=== PATIENT | female | born 1975 | race Caucasian/White ===

== ENCOUNTER 2018-07-15 08:20 | Emergency (ER) | payer MEDICARE, OTHER ==
[~2018-07-15] VITALS: Ht 162.6 cm; Wt 96.6 kg
[2018-07-15] MEDS ORDERED: IBUPROFEN 600 MG TABLET. PO ONE (08:45)
--- NOTE | 2018-07-15 08:45 | PHYS DOC ---
Past History Past Medical History: Depression Past Surgical History: No Surgical History Smoking: Non-smoker Alcohol Use: Occasionally Drug Use: None Adult General Chief Complaint Chief Complaint: ELBOW PROBLEM HPI HPI Patient is a 42-year-old female presents complaining of bilateral elbow pain, right greater than left, after mechanical trip and fall down several bleacher steps. This happened approximately 30 minutes prior to arrival. There was no loss of consciousness. No numbness or tingling. Increased pain with movement. Patient is right-hand dominant. No previous history of elbow injury. Pain is moderate to severe in intensity. No radiation of the pain. Naproxen has been taken with minimal improvement. Last oral intake of food was 6 AM.[] Review of Systems Review of Systems Constitutional: Denies fever or chills [] Eyes: Denies change in visual acuity, redness, or eye pain [] HENT: Denies nasal congestion or sore throat [] Respiratory: Denies cough or shortness of breath [] Cardiovascular: No chest pain or palpitation[] GI: Denies abdominal pain, nausea, vomiting, bloody stools or diarrhea [] : Denies dysuria or hematuria [] Musculoskeletal: Denies back pain, see history of present illness[] Integument: Denies rash or skin lesions [] Neurologic: Denies headache, focal weakness or sensory changes [] Endocrine: Denies polyuria or polydipsia [] All other systems were reviewed and found to be within normal limits, except as documented in this note. Allergies Allergies Allergies Coded Allergies Type Severity Reaction Last Updated Verified Penicillins Allergy Unknown 07/15/18 Yes Sulfa (Sulfonamide Antibiotics) Allergy Unknown 07/15/18 Yes Physical Exam Physical Exam Constitutional: Well developed, well nourished, no acute distress, non-toxic appearance. [] HENT: Normocephalic, atraumatic, bilateral external ears normal, oropharynx moist, no oral exudates, nose normal. [] Eyes: PERRLA, EOMI, conjunctiva normal, no discharge. [] Neck: Normal range of motion, no tenderness, supple, no stridor. [] Cardiovascular:Heart rate regular rhythm, no murmur [] Lungs & Thorax: Bilateral breath sounds clear to auscultation [] Abdomen: Bowel sounds normal, soft, no tenderness, no masses, no pulsatile masses. [] Skin: Warm, dry, no erythema, no rash. [] Back: No tenderness, no CVA tenderness. [] Extremities: Bilateral elbows have diffuse tenderness to palpation, decreased active range of motion of the right elbow secondary to pain. Full active range of motion of the left elbow. A joint above and below the injury were evaluated and were normal. The other 2 extremities show: No tenderness, brain shins on bilateral knees, no suturable wound, no cyanosis, no clubbing, ROM intact, no edema. [] Neurologic: Alert and oriented X 3, normal motor function, normal sensory function, no focal deficits noted. [] Psychologic: Affect normal, judgement normal, mood normal. [] EKG EKG [] Radiology/Procedures Radiology/Procedures PROCEDURE: ELBOW RIGHT 2V Examination: 2 views of the right elbow and 3 views of the left elbow HISTORY: History of fall COMPARISON: None available Findings/ impression: Right elbow: There is posterior dislocation of the elbow with the ulna and radius dislocated posteriorly and laterally in relation to the humerus. However examination limited due to positioning. There is a bone density identified projecting posterior to the ulna and superior to the radius on the AP view could be fractured bone fragment. Left elbow: The alignment of the left elbow joint grossly appears unremarkable. There is lucency identified in the coronoid process of the ulna likely fracture of the coronoid process of the ulna. There is subtle cortical step-off identified in the radius head could be nondisplaced fracture or small osteophyte.[] Course & Med Decision Making Course & Med Decision Making Pertinent Labs and Imaging studies reviewed. (See chart for details) ED course: Patient arrived, was placed in bed, and tolerated exam well. After the return the imaging findings, these were discussed with the patient and her , both of whom voiced understanding. Consultation was made with Dr. Robledo, who recommended reduction of the right elbow dislocation. He did not think that surgery was indicated at this time, and that the left elbow had been dislocated and spontaneously reduced and recommended splinting of the left elbow. She was given IV pain medicines. She was consented for procedural sedation for the elbow reduction. She tolerated the procedure well. [place] much better after the procedure, and tolerated passive range of motion throughout the full range of motion. Post reduction imaging shows significantly improved alignment. Consultation was reading gauged with orthopedic surgery who felt that the views were not adequate so additional views were obtained after the splint had been applied that shows what appears to be a continued dislocation of the elbow. Orthopedics was reengaged after the third set of x-rays who felt that this was too unstable of a joined for their capabilities so consultation then was made with [facility]. Dr. Brown accepted the patient for transfer. Medical decision making: Patient appears to have bilateral fractures and dislocations the elbow with the left dislocation reduced however, there appears to be a continued unstable dislocation of the right elbow. There is no evidence of an open fracture. No evidence of neurologic or vascular compromise.[] Dragon Disclaimer Dragon Disclaimer This electronic medical record was generated, in whole or in part, using a voice recognition dictation system. Departure Departure: Impression: Primary Impression: Dislocation of right elbow Additional Impressions: Fracture of radial head, right, closed Left ulnar fracture Disposition: 05 TRANSFER OTHER Condition: IMPROVED Referrals: PCP,NO (PCP) Patient Instructions: Cast or Splint Care, Elbow Dislocation with Rehab- [facility], Elbow Fracture, Simple, Sling Use After Injury or Surgery Scripts Ondansetron Hcl (ZOFRAN) 4 Mg Tablet 1 TAB PO Q6HRS for nausea or vomiting, #20 TAB Prov: JERO SOSA DO 07/15/18 Hydrocodone Bit/Acetaminophen (NORCO 5-325 TABLET) 1 Each Tablet 1-2 TAB PO Q4-6HRS for severe pain, #20 TAB Prov: JERO SOSA DO 07/15/18 Meloxicam (MELOXICAM) 7.5 Mg Tablet 7.5 MG PO DAILY for PAIN, #20 TAB Prov: JERO SOSA DO 07/15/18 Procedural Sedation Proc Sed Indication: Right elbow reduction of dislocation[] Consent: Was obtained prior to the procedure[] Physician Involvement: The attending physician was present and supervising this procedure. Pre-Sedation Documentation and Exam: See ER note[] Airway Assessment: Mallampatti 2[] Prior History of Anesthesia Complications: none[] ASA Classification: 2[] Sedation/ Anesthesia Plan: Propofol[] Medications Used: Propofol[] Monitoring and Safety: The patient was placed on a playground monitor and vital signs, pulse oximetry and level of consciousness were continuously evaluated throughout the procedure. The patient was closely monitored until recovery from the medications was complete and the patient had returned to baseline status. Respiratory therapy was on standby at all times during the procedure. (The following sections must be completed) Post-Sedation Vital Signs: [EDM.VS] Post-Sedation Exam: Awake, alert, feeling much better[] Complications: None[] Vital Signs Vital Signs Date Time Temp Pulse Resp B/P (MAP) Pulse Ox O2 Delivery O2 Flow Rate FiO2 07/15/18 08:20 98.4 90 20 98 Room Air 07/15/18 08:20 143/96 (112) Problem Qualifiers Primary Impression: Dislocation of right elbow Encounter type: initial encounter Qualified Codes: S53.104A - Unspecified dislocation of right ulnohumeral joint, initial encounter Additional Impressions: Fracture of radial head, right, closed Encounter type: initial encounter Fracture alignment: nondisplaced Qualified Codes: S52.124A - Nondisplaced fracture of head of right radius, initial encounter for closed fracture Left ulnar fracture Encounter type: initial encounter Ulna location: coronoid process Fracture type: closed Fracture alignment: displaced Qualified Codes: S52.042A - Displaced fracture of coronoid process of left ulna, initial encounter for closed fracture JERO SOSA DO Jul 15, 2018 08:45
[2018-07-15] MEDS ORDERED: SERT25TA PO (08:55)
[2018-07-15] MEDS ORDERED: ONDANSETRON PF 4 MG/2 ML VIAL. IV ONE (09:15)
--- NOTE | 2018-07-15 09:24 | RAD ---
Both elbows were dictated on the right elbow radiograph. See that report. Electronically signed by: Devin Shepard MD (07/15/2018 9:21 AM) [facility]
--- NOTE | 2018-07-15 09:24 | RAD ---
Examination: 2 views of the right elbow and 3 views of the left elbow HISTORY: History of fall COMPARISON: None available Findings/ impression: Right elbow: There is posterior dislocation of the elbow with the ulna and radius dislocated posteriorly and laterally in relation to the humerus. However examination limited due to positioning. There is a bone density identified projecting posterior to the ulna and superior to the radius on the AP view could be fractured bone fragment. Left elbow: The alignment of the left elbow joint grossly appears unremarkable. There is lucency identified in the coronoid process of the ulna likely fracture of the coronoid process of the ulna. There is subtle cortical step-off identified in the radius head could be nondisplaced fracture or small osteophyte. Electronically signed by: Devin Shepard MD (07/15/2018 9:21 AM) [facility]
[2018-07-15] MEDS ORDERED: PROPOFOL 20 ML IV ONE (10:00)
[2018-07-15] MEDS ORDERED: HYDR-3165 PO (10:59)
[2018-07-15] MEDS ORDERED: ONDA4TAB7 PO (10:59)
[2018-07-15] MEDS ORDERED: MELO7.5T29 PO (10:59)
--- NOTE | 2018-07-15 10:59 | RAD ---
Examination: 2 views of the right elbow HISTORY: History of post reduction COMPARISON: None available Findings/ impression: Interval reduction changes of the elbow dislocation however evaluation is limited due to positioning. There is mild displaced fracture of the coronoid process of the ulna. There is oblique nondisplaced fracture of the radius head. Small elbow joint effusion. Electronically signed by: Devin Shepard MD (07/15/2018 10:56 AM) [facility]
[2018-07-15] MEDS ORDERED: IV NORMAL SALINE 1,000ML 1,000 ML IV ONE (11:00)
--- NOTE | 2018-07-15 11:40 | RAD ---
Examination: 3 views of the right elbow HISTORY: History of postreduction. COMPARISON: 10:13 AM FINDINGS: There appears to be dislocation of the elbow again with posterior dislocation of the radius and ulna in relation to the humerus. Radial fracture and probable coronoid process of the of the ulna again identified. Cast obscures fine bony detail. IMPRESSION: Redislocation of the elbow. ER physician informed and aware of the findings. Electronically signed by: Devin Shepard MD (07/15/2018 11:37 AM) [facility]
[2018-07-15 11:55] LABS: CALCIUM 9.9 mg/dL (8.5-10.1); CREATININE 0.8 mg/dL (0.6-1.0); GFR 78.7; POTASSIUM 4.2 mmol/L (3.5-5.1)
[2018-07-15 11:58] LABS: BASO # 0.1 x10^3/uL (0.0-0.2); BASO % 1 % (0-3); EOS # 0.2 x10^3/uL (0.0-0.7); EOS % 2 % (0-3); HEMOGLOBIN 14.7 g/dL (12.0-15.5); LYMPH # 3.1 x10^3/uL (1.0-4.8); LYMPH % 24 % (24-48); MEAN CORPUSCULAR HEMOGLOBIN 30 pg (25-35); MEAN CORPUSCULAR HGB CONC 33 g/dL (31-37); MEAN CORPUSCULAR VOLUME 90 fL (79-100); MONO % 7 % (0-9); NEUT # 8.5 x10^3uL (1.8-7.7); NEUT % 66 % (31-73); PLATELET COUNT 369 x10^3/uL (140-400); RED BLOOD COUNT 4.87 x10^6/uL (3.50-5.40); RED CELL DISTRIBUTION WIDTH 12.7 % (11.5-14.5); WHITE BLOOD COUNT 12.8 x10^3/uL (4.0-11.0)
[2018-07-15 12:19] VITALS: BP 142/59
== END 2018-07-15 13:12 | disposition short-term general hospital (02) ==
LOC: ER 08:20
DX: S53.144A Lateral dislocation of right ulnohumeral joint, initial encounter (principal); S53.124A Posterior dislocation of right ulnohumeral joint, initial encounter; S52.121A Displaced fracture of head of right radius, initial encounter for closed fracture; S52.042A Displaced fracture of coronoid process of left ulna, initial encounter for closed fracture; W01.0XXA Fall on same level from slipping, tripping and stumbling without subsequent striking against object, initial encounter; Y93.89 Activity, other specified; Y92.89 Other specified places as the place of occurrence of the external cause; Y99.8 Other external cause status
CPT/HCPCS: 24655; 24675; 29505; 36415; 73070; 73080; 80048; 84702; 85025; 96374; 96375; 96376; 99285; J2405; J2704; J3010; 99152; J7030